=== PATIENT | male | born 1975 | race American Indian/Alaskan Native ===

== ENCOUNTER 2016-07-13 06:49 | Day surgery (SDC) | payer MEDICAID, OTHER ==
[~2016-07-13 06:49] MED LIST: Bupivacaine 0.5%/EPINEPHrine 1:200,000 50 ML MDV ONE
[2016-07-13] MEDS ORDERED: Lactated Ringers 1,000 ML IV SCH (07:30)
[2016-07-13] MEDS ORDERED: ceFAZolin 2 GM in Sodium Chloride 0.9% 50 ML IV ONE (07:30)
[2016-07-13] MEDS ORDERED: Bupivacaine 0.5% 50 ML MDV ONE (07:36)
[2016-07-13] MEDS ORDERED: Midazolam 1 MG/ML 2 ML SDV ONE (07:36)
[2016-07-13] MEDS ORDERED: fentaNYL 100 MCG/2 ML SDV ONE ×2 (07:37→09:59)
[2016-07-13] MEDS ORDERED: Ondansetron 4 MG/2 ML SDV ONE (08:15)
[2016-07-13] MEDS ORDERED: Neostigmine Methylsulfate 1 MG/ML 5 ML Syringe ONE (08:15)
[2016-07-13] MEDS ORDERED: Rocuronium 50 MG/5 ML Vial ONE (08:15)
[2016-07-13] MEDS ORDERED: fentaNYL 250 MCG/5 ML SDV ONE (08:15)
[2016-07-13] MEDS ORDERED: Propofol 200 MG/20 ML SDV ONE (08:15)
[2016-07-13] MEDS ORDERED: Dexamethasone 4 MG/ML SDV ONE (08:15)
[2016-07-13] MEDS ORDERED: Povidone-Iodine 10% Soln 118.25 ML Bottle ONE (10:29)
[2016-07-13] MEDS ORDERED: Succinylcholine/Normal Saline 200 MG/10 ML Syringe ONE (10:46)
[2016-07-13 13:42] VITALS: BP 115/69
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
== END 2016-07-13 14:20 | disposition home or self-care (01) ==
LOC: JP.SDS 06:49
PROVIDERS: ATTEND Orthopaedic Surgery
PROC: 0RSG04Z Reposition Right Acromioclavicular Joint with Internal Fixation Device, Open Approach (ICD-10-PCS; principal; 2016-07-13)
PROC: 0PB90ZZ Excision of Right Clavicle, Open Approach (ICD-10-PCS; 2016-07-13)
DX: S43.101A Unspecified dislocation of right acromioclavicular joint, initial encounter (principal); V86.92XA Unspecified occupant of snowmobile injured in nontraffic accident, initial encounter; F41.9 Anxiety disorder, unspecified; D64.9 Anemia, unspecified; Z79.899 Other long term (current) drug therapy
CPT/HCPCS: 23120; 23552; C1776; J0690; J1100; J2250; J2405; J2704; J3010; J7050; J7120

== ENCOUNTER 2016-09-05 10:55 | Emergency (ER) | payer MEDICAID, OTHER ==
[2016-09-05] MEDS ORDERED: Ketorolac 60 MG/2 ML SDV IM ONE (11:52)
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
[2016-09-05 12:20] VITALS: BP 138/90
== END 2016-09-05 12:31 | disposition home or self-care (01) ==
LOC: JP.ED 10:55
DX: M25.511 Pain in right shoulder (principal); F32.9 Major depressive disorder, single episode, unspecified; F41.9 Anxiety disorder, unspecified; F17.210 Nicotine dependence, cigarettes, uncomplicated; Z79.899 Other long term (current) drug therapy; Z98.890 Other specified postprocedural states
CPT/HCPCS: 96372; 99283; J1885

== ENCOUNTER 2017-02-12 16:07 | Emergency (ER) | payer MEDICAID ==
[2017-02-12 16:22] VITALS: BP 143/84
[2017-02-12] MEDS ORDERED: Ketorolac 60 MG/2 ML SDV IM ONE (16:40)
--- NOTE | 2017-02-12 16:40 | EDM.PDOC ---
ED HPI GENERAL MEDICAL PROBLEM - General Chief Complaint: ENT Problem Stated Complaint: TOOTHACHE Time Seen by Provider: 02/12/17 16:25 Source of Information: Reports: Patient, Family History Limitations: Reports: No Limitations - History of Present Illness INITIAL COMMENTS - FREE TEXT/NARRATIVE: Napoleon presents today with complaints of dental pain to right lower jaw. He reports pain starting as dull ache 2 days ago with steady progression to sharp stabbing pain today. He states he does grind his teeth at night. Napoleon has tried use of acetaminophen, ibuprofen, naproxen and orajel without relief. Right Lower Tooth/Teeth Pain Score (Numeric/FACES): 8 - Related Data Allergies Allergy/AdvReac Type Severity Reaction Status Date / Time No Known Allergies Allergy Verified 02/12/17 16:22 Home Meds: Home Meds NK [No Known Home Meds] 02/12/17 [History] Past Medical History - Past Health History Medical/Surgical History: Denies Medical/Surgical History HEENT History: Reports: None Respiratory History: Reports: Pneumothorax Gastrointestinal History: Reports: Cholelithiasis Genitourinary History: Reports: Renal Calculus Musculoskeletal History: Reports: Other (See Below) Other Musculoskeletal History: shoulder separation Psychiatric History: Reports: Anxiety, Depression, Suicide Attempt Hematologic History: Reports: Anemia - Infectious Disease History Infectious Disease History: Reports: C-Difficile - Past Surgical History GI Surgical History: Reports: Cholecystectomy Musculoskeletal Surgical History: Reports: Shoulder Surgery Social & Family History - Family History Musculoskeletal: Reports: Arthritis Endocrine/Metabolic: Reports: Diabetes, type II Immunologic: Reports: SLE - Tobacco Use Smoking Status *Q: Current Every Day Smoker Years of Tobacco use: 20 Packs/Tins Daily: 0.5 Used Tobacco, but Quit: No Second Hand Smoke Exposure: Yes - Caffeine Use Caffeine Use: Reports: Coffee - Alcohol Use Days Per Week of Alcohol Use: 2 Number of Drinks Per Day: 3 Total Drinks Per Week: 6 - Recreational Drug Use Recreational Drug Use: No Recreational Drug Type: Reports: Marijuana/Hashish Recreational Drug Use Frequency: Monthly - Living Situation & Occupation Living situation: Reports: with Significant Other ED ROS ENT - Review of Systems Review Of Systems: See Below Constitutional: Denies: Fever, Chills, Night Sweats HEENT: Reports: Dental Pain. Denies: Ear Discharge, Ear Pain, Sinus Problem, Throat Pain, Throat Swelling, Vision Change Respiratory: Denies: Shortness of Breath, Wheezing, Cough, Sputum Cardiovascular: Reports: No Symptoms GI/Abdominal: Reports: No Symptoms Musculoskeletal: Denies: Neck Pain Skin: Denies: Bruising, Rash, Erythema, Wound Neurological: Reports: No Symptoms Psychiatric: Reports: No Symptoms Hematologic/Lymphatic: Reports: No Symptoms Immunologic: Reports: No Symptoms ED EXAM, ENT - Physical Exam Exam: See Below Text/Narrative:: Napoleon is an alert, oriented and pleasant 41 year old male presenting with dental pain for less then 72 hours. He has tried use of OTC medications and topicals to help his pain. He also suffers from bruxism. [place] noted to #28, pain to #27,28,29 at gum line. No erythema, edema or exudates of oral cavity. [place] HE[facility] INFORMATION CLERK checked, appropriate with no recent fills of narcotic medications. Exam Limited By: No Limitations General Appearance: Alert, WD/WN, Moderate Distress Eye Exam: Bilateral Eye: EOMI, PERRL Ears: Normal External Exam, Normal Canal, Hearing Grossly Normal, Normal TMs Nose: Normal Inspection, Normal Mucousa, No Blood Mouth/Throat: Normal Inspection, Normal Gums, Normal Lips, Normal Oropharynx, Dental Pain, Dental Tenderness, Other (tenderness noted to #27,28,29). No: Dental Abcess, Dental Trauma, Gum Swelling, Oral Ulcers Head: Atraumatic, Normocephalic Neck: Normal Inspection, Supple, Non-Tender, Full Range of Motion. No: Lymphadenopathy (R), Lymphadenopathy (L) Respiratory/Chest: No Respiratory Distress, Lungs Clear, Normal Breath Sounds, No Accessory Muscle Use, Chest Non-Tender Cardiovascular: Normal Peripheral Pulses, Regular Rate, Rhythm, No Edema, No Murmur, No Rub Neurological: Alert, Oriented, CN II-XII Intact, Normal Cognition, Normal Gait, No Motor/Sensory Deficits Psychiatric: Normal Affect, Normal Mood Skin: Warm, Dry, Intact, Normal Color, No Rash Lymphatic: No Adenopathy Course - Vital Signs Last Recorded V/S: Last Vital Signs Temp 36.5 C 02/12/17 16:17 Pulse 75 02/12/17 16:17 Resp 18 02/12/17 16:17 BP 143/84 H 02/12/17 16:17 Pulse Ox 97 02/12/17 16:17 - Orders/Labs/Meds Meds: Medications Discontinued Medications Generic Name Dose Route Start Last Admin Trade Name Lorenzo PRN Reason Stop Dose Admin Ketorolac Tromethamine 60 mg 02/12/17 16:40 02/12/17 16:51 Toradol IM 02/12/17 16:41 60 mg ONETIME ONE Administration - Re-Assessments/Exams Free Text/Narrative Re-Assessment/Exam: 02/12/17 16:55 Exam findings reviewed with patient. No evidence of infection noted with significant tenderness to tooth with crown. He will be provided Toradol IM and instymed for hydrocodone #6 tablets for pain. Referral to dental clinic. Departure - Departure Time of Disposition: 16:39 Disposition: Home, Self-Care 01 Condition: Good Clinical Impression: Pain, dental, Bruxism (teeth grinding) - Discharge Information Instructions: Dental Care and Dentist Visits Referrals: PCP,None [Primary Care Provider] - Forms: ED Department Discharge Additional Instructions: You are suffering from dental pain. You were given toradol 60mg injection for pain in the emergency room. You can take ibuprofen 800mg by mouth three times a day as needed for pain ( first dose 6 hours after injection). Acetaminophen can also help for the pain as needed. Hydrocodone 5/325mg, one to two tablets as directed #6 provided. A dental referral was placed for you at [facility]. Report as directed tomorrow 02/13/17 at 8:15am. [place] [facility] INFORMATION CLERK checked and appropriate. - Assessment/Plan Assessment:: Dental pain Bruxism Plan: Patient given toradol 60mg injection for pain in the emergency room. He can take ibuprofen 800mg by mouth three times a day as needed for pain ( first dose 6 hours after injection). Acetaminophen can also help for the pain as needed. Hydrocodone 5/325mg, one to two tablets as directed #6 provided. A dental referral was placed for patient at [facility]. Report as directed tomorrow 02/13/17 at 8:15am. [place] [facility] INFORMATION CLERK checked and appropriate.
== END 2017-02-12 17:03 | disposition home or self-care (01) ==
LOC: JP.ED 16:07
DX: G47.63 Sleep related bruxism (principal); K08.89 Other specified disorders of teeth and supporting structures; F17.210 Nicotine dependence, cigarettes, uncomplicated
CPT/HCPCS: 96372; 99283; J1885

== ENCOUNTER 2017-04-03 11:03 | Emergency (ER) | payer MEDICAID ==
[2017-04-03 11:25] VITALS: BP 134/86
[2017-04-03] MEDS ORDERED: Ketorolac 60 MG/2 ML SDV IM ONE (12:03)
--- NOTE | 2017-04-03 12:07 | EDM.PDOC ---
ED HPI GENERAL MEDICAL PROBLEM - General Chief Complaint: Back Pain or Injury Stated Complaint: BACK PAIN Time Seen by Provider: 04/03/17 12:00 Source of Information: Reports: Patient, RN Notes Reviewed History Limitations: Reports: No Limitations - History of Present Illness INITIAL COMMENTS - FREE TEXT/NARRATIVE: 41-year-old gentleman presents emergency department day complaint of low back pain he thinks he injured himself yesterday with a twisting injury he has had problems with his back in the past he tried Flexeril last night with minimal relief no loss of bowel or bladder no fevers lower;back Pain Score (Numeric/FACES): 8 - Related Data Allergies Allergy/AdvReac Type Severity Reaction Status Date / Time No Known Allergies Allergy Verified 04/03/17 11:33 Home Meds: Home Meds Cyclobenzaprine [Flexeril] 10 mg PO BEDTIME PRN 04/03/17 [History] Past Medical History Respiratory History: Reports: Pneumothorax Gastrointestinal History: Reports: Cholelithiasis Genitourinary History: Reports: Renal Calculus Musculoskeletal History: Reports: Other (See Below) Other Musculoskeletal History: shoulder separation Psychiatric History: Reports: Anxiety, Depression, Suicide Attempt Hematologic History: Reports: Anemia - Infectious Disease History Infectious Disease History: Reports: C-Difficile - Past Surgical History GI Surgical History: Reports: Cholecystectomy Musculoskeletal Surgical History: Reports: Shoulder Surgery Social & Family History - Family History Musculoskeletal: Reports: Arthritis Endocrine/Metabolic: Reports: Diabetes, type II Immunologic: Reports: SLE - Tobacco Use Smoking Status *Q: Current Every Day Smoker Years of Tobacco use: 20 Packs/Tins Daily: 0.5 Used Tobacco, but Quit: No Second Hand Smoke Exposure: Yes - Caffeine Use Caffeine Use: Reports: Coffee - Alcohol Use Days Per Week of Alcohol Use: 2 Number of Drinks Per Day: 3 Total Drinks Per Week: 6 - Recreational Drug Use Recreational Drug Use: No Recreational Drug Type: Reports: Marijuana/Hashish Recreational Drug Use Frequency: Monthly - Living Situation & Occupation Living situation: Reports: with Significant Other ED ROS GENERAL - Review of Systems Review Of Systems: See Below Constitutional: Denies: Fever, Chills Musculoskeletal: Reports: Back Pain Skin: Reports: No Symptoms Neurological: Reports: No Symptoms ED EXAM,LOWER BACK PAIN/INJURY - Physical Exam Exam: See Below Exam Limited By: No Limitations General Appearance: Alert, WD/WN, No Apparent Distress Respiratory/Chest: No Respiratory Distress Back Exam: Normal Inspection, Decreased Range of Motion, Muscle Spasm, Paraspinal Tenderness. No: CVA Tenderness (R), CVA Tenderness (L), Vertebral Tenderness DTR - Lower Extremities: 2+: Knee (R), Knee (L) Course - Vital Signs Last Recorded V/S: Last Vital Signs Temp 97.2 F 04/03/17 11:32 Pulse 75 04/03/17 11:32 Resp 18 04/03/17 11:32 BP 134/86 04/03/17 11:32 Pulse Ox 98 04/03/17 11:32 - Orders/Labs/Meds Meds: Medications Discontinued Medications Generic Name Dose Route Start Last Admin Trade Name Nayanq PRN Reason Stop Dose Admin Carisoprodol 350 mg 04/03/17 12:03 04/03/17 12:22 Soma PO 04/03/17 12:04 350 mg ONETIME ONE Administration Ketorolac Tromethamine 60 mg 04/03/17 12:03 04/03/17 12:19 Toradol IM 04/03/17 12:04 60 mg ONETIME ONE Administration Departure - Departure Time of Disposition: 13:21 Disposition: Home, Self-Care 01 Condition: Good Clinical Impression: Back pain Qualifiers: Back pain location: low back pain Chronicity: acute Back pain laterality: right Sciatica presence: without sciatica Qualified Code(s): M54.5 - Low back pain - Discharge Information Referrals: PCP,None [Primary Care Provider] - Forms: ED Department Discharge Additional Instructions: Use ibuprofen for baseline pain control, use hydrocodone for breakthrough pain, use Flexeril as needed for muscle relaxant Please followup with your primary care provider in 3-5 days if not better, please call return to the emergency department with worsening of symptoms. - Assessment/Plan Plan: Assessment Acuity = acute Site and laterality = low back pain Etiology = secondary lifting injury Manifestations = none Location of injury = Home Lab values = none Plan Some relief with combination Toradol and Soma plan is discharge home with Flexeril 10 mg by mouth 3 times a day when necessary and hydrocodone 5/325 one tab by mouth 3 times a day when necessary him follow-up with his primary care in 3-5 days if no improvement Patient was in agreement with the plan all questions were answered, they were instructed to return to the emergency department or call for worsening symptoms. This note was dictated using [email or web address] voice recognition software please call with any questions.
== END 2017-04-03 13:27 | disposition home or self-care (01) ==
LOC: JP.ED 11:03
DX: M54.5 Low back pain (principal); F17.210 Nicotine dependence, cigarettes, uncomplicated; X50.1XXA Overexertion from prolonged static or awkward postures, initial encounter
CPT/HCPCS: 96372; 99283; A9270; J1885

== ENCOUNTER 2017-08-28 18:45 | Emergency (ER) | payer SELFPAY ==
[2017-08-28 19:00] VITALS: BP 145/80
[2017-08-28] MEDS ORDERED: Ketorolac 60 MG/2 ML SDV IM ONE (19:39)
[2017-08-28] MEDS ORDERED: Cyclobenzaprine 10 MG Tab PO ONE (19:39)
--- NOTE | 2017-08-28 19:46 | EDM.PDOC ---
ED HPI GENERAL MEDICAL PROBLEM - General Chief Complaint: Back Pain or Injury Stated Complaint: HURT BACK ON 27 Time Seen by Provider: 08/28/17 19:35 Source of Information: Reports: Patient, Family, Old Records, RN Notes Reviewed History Limitations: Reports: No Limitations - History of Present Illness INITIAL COMMENTS - FREE TEXT/NARRATIVE: 42-year-old gentleman presents to the emergency department day complaint of low back pain predominately on the right side, he injured himself at work improperly lifting and twisting, he has no loss of bowel or bladder he has tried ibuprofen and methocarbamol with minimal relief no fevers Right Lower Back Pain Score (Numeric/FACES): 8 - Related Data Allergies Allergy/AdvReac Type Severity Reaction Status Date / Time No Known Allergies Allergy Verified 04/03/17 11:33 Home Meds: Home Meds Cyclobenzaprine [Flexeril] 10 mg PO BEDTIME PRN 04/03/17 [History] Past Medical History Respiratory History: Reports: Pneumothorax Gastrointestinal History: Reports: Cholelithiasis Genitourinary History: Reports: Renal Calculus Musculoskeletal History: Reports: Other (See Below) Other Musculoskeletal History: shoulder separation Psychiatric History: Reports: Anxiety, Depression, Suicide Attempt Hematologic History: Reports: Anemia - Infectious Disease History Infectious Disease History: Reports: Chicken Pox - Past Surgical History GI Surgical History: Reports: Cholecystectomy Musculoskeletal Surgical History: Reports: Shoulder Surgery Social & Family History - Family History Musculoskeletal: Reports: Arthritis Endocrine/Metabolic: Reports: Diabetes, type II Immunologic: Reports: SLE - Tobacco Use Smoking Status *Q: Never Smoker Years of Tobacco use: 20 Packs/Tins Daily: 0.5 Used Tobacco, but Quit: No Second Hand Smoke Exposure: Yes - Caffeine Use Caffeine Use: Reports: Coffee - Alcohol Use Days Per Week of Alcohol Use: 2 Number of Drinks Per Day: 3 Total Drinks Per Week: 6 - Recreational Drug Use Recreational Drug Use: No Recreational Drug Type: Reports: Marijuana/Hashish Recreational Drug Use Frequency: Monthly - Living Situation & Occupation Living situation: Reports: with Significant Other ED ROS GENERAL - Review of Systems Review Of Systems: See Below Constitutional: Reports: No Symptoms HEENT: Reports: No Symptoms Respiratory: Reports: No Symptoms Cardiovascular: Reports: No Symptoms GI/Abdominal: Reports: No Symptoms : Reports: No Symptoms Musculoskeletal: Reports: Back Pain ED EXAM,LOWER BACK PAIN/INJURY - Physical Exam Exam: See Below Text/Narrative:: Examination of the low back I don't appreciate any erythema or edema over the back injury he is tender to palpation lumbar region cross leg test and straight leg test are both negative he has difficulty ambulating failure versus his left side Exam Limited By: No Limitations General Appearance: Alert, WD/WN, No Apparent Distress Respiratory/Chest: No Respiratory Distress Course - Vital Signs Last Recorded V/S: Last Vital Signs Temp 98.2 F 08/28/17 18:58 Pulse 73 08/28/17 18:58 Resp 16 08/28/17 18:58 BP 145/80 H 08/28/17 18:58 Pulse Ox 97 08/28/17 18:58 - Orders/Labs/Meds Meds: Medications Discontinued Medications Generic Name Dose Route Start Last Admin Trade Name Frepeter PRN Reason Stop Dose Admin Cyclobenzaprine HCl 10 mg 08/28/17 19:39 08/28/17 20:04 Flexeril PO 08/28/17 19:40 10 mg ONETIME ONE Administration Ketorolac Tromethamine 60 mg 08/28/17 19:39 08/28/17 20:04 Toradol IM 08/28/17 19:40 60 mg ONETIME ONE Administration Departure - Departure Time of Disposition: 20:47 Disposition: Home, Self-Care 01 Condition: Good Clinical Impression: Back pain Qualifiers: Back pain location: low back pain Chronicity: acute Back pain laterality: right Sciatica presence: without sciatica Qualified Code(s): M54.5 - Low back pain - Discharge Information Referrals: PCP,None [Primary Care Provider] - Forms: ED Department Discharge, ED Return to Work/School Form Additional Instructions: Continue to use ibuprofen for baseline pain control, use hydrocodone for breakthrough pain, use Flexeril as needed for muscle relaxant, please follow-up with your primary care provider for further evaluation recommend physical therapy - Assessment/Plan Plan: Assessment Acuity = acute Site and laterality = low back pain Etiology = secondary to lifting injury Manifestations = none Location of injury = work Lab values = none Plan He had good improvement with combination Toradol Flexeril discharged home with Flexeril 10 mg by mouth 3 times a day when necessary total #15 also given hydrocodone 5/325 one tablet by mouth every 4-6 hours when necessary to #6 he is to follow-up with his primary care provider for further evaluation tomorrow This note was dictated using [employer] voice recognition software please call with any questions on syntax or penelope.
== END 2017-08-28 20:57 | disposition home or self-care (01) ==
LOC: JP.ED 18:45
DX: M54.5 Low back pain (principal); X50.0XXA Overexertion from strenuous movement or load, initial encounter
CPT/HCPCS: 96372; 99283; A9270; J1885

== ENCOUNTER 2023-03-23 15:06 | Emergency (ER) | payer MEDICAID ==
[2023-03-23 15:37] VITALS: BP 144/87; PULSE 80
[2023-03-23 17:04] LABS: BASOPHILS PERCENT AUTO 0.3 % (0.1-1.3); EOSINOPHILS ABSOLUTE AUTO 0.19 K/uL (0.00-0.40); EOSINOPHILS PERCENT AUTO 5.5 % (0.0-5.4); HEMATOCRIT 44.5 % (38.4-49.7); HEMOGLOBIN 14.7 g/dL (12.9-16.9); IMMATURE GRAN PERCENT AUTO 0.3 % (0.0-0.7); LYMPHOCYTES ABSOLUTE AUTO 1.42 K/uL (0.8-3.3); LYMPHOCYTES PERCENT AUTO 41.2 % (11.4-47.7); MEAN CORPUSCULAR HEMOGLOBIN 30.1 pg (31.6-35.5); MEAN CORPUSCULAR VOLUME 91.2 fL (81.4-99.0); MONOCYTES ABSOLUTE AUTO 0.51 K/uL (0.20-0.90); MONOCYTES PERCENT AUTO 14.8 % (3.3-12.6); NEUTROPHILS ABSOLUTE AUTO 1.31 K/uL (1.0-7.6); NEUTROPHILS PERCENT AUTO 37.9 % (40.0-78.1); PLATELET COUNT,PLT 217 K/uL (130-375); RED BLOOD CELL COUNT 4.88 M/uL (4.14-5.76); WHITE BLOOD CELL COUNT,WBC 3.5 K/uL (3.2-11.0)
[2023-03-23 17:05] LABS: BASE EXCESS VENOUS 0.7 mm/L; BASOPHILS ABSOLUTE AUTO 0.01 K/uL (0.00-0.10); BICARBONATE,VENOUS 25.5 mmol/L; CARBOXYHEMOGLOBIN 3.3 % (0.0-1.6); IMMATURE GRAN ABSOLUTE AUTO 0.01 K/uL (0.00-0.23); METHEMOGLOBIN 0.9 %; O2 SATURATION VENOUS 47.2; OXYHEMOGLOBIN 45.2 %; PCO2 VENOUS 43.8 mm/Hg; PH,VENOUS 7.384 (7.350-7.450); TOTAL HEMOGLOBIN 15.5 g/dL (13.5-18.0)
[2023-03-23 17:06] LABS: PO2 VENOUS 28.4 mm/Hg
[2023-03-23 17:24] LABS: A/G RATIO 1.1 (1.2-2.2); ALANINE AMINOTRANSFERASE,ALT 18 U/L (12-78); ALBUMIN 3.3 g/dL (3.4-5.0); ALKALINE PHOSPHATASE 98 U/L (46-116); ANION GAP 10.8 mmol/L (5.0-14.0); ASPARTATE AMNIOTRANSFERASE,AST 17 U/L (15-37); BILIRUBIN TOTAL 0.2 mg/dL (0.2-1.0); BLOOD UREA NITROGEN,BUN 11 mg/dL (7-18); CARBON DIOXIDE,CO2 29 mmol/L (21-32); CHLORIDE,CL 109 mmol/L (100-108); CREATININE 1.1 mg/dL (0.8-1.3); EST CRCL DRUG DOSING (CG) 92.81 mL/min; ESTIMATED GFR 83 mL/min (>60); GLUCOSE RANDOM 108 mg/dL (74-106); POTASSIUM,K 3.8 mmol/L (3.6-5.2); PROTEIN TOTAL,TP 6.4 g/dL (6.4-8.2); SODIUM,NA 145 mmol/L (140-148)
== END 2023-03-23 19:10 | disposition home or self-care (01) ==
LOC: JP.ED 15:06
DX: R05.3 Chronic cough (principal); J01.00 Acute maxillary sinusitis, unspecified; R07.9 Chest pain, unspecified; Z86.16 Personal history of COVID-19; F17.210 Nicotine dependence, cigarettes, uncomplicated
CPT/HCPCS: 36415; 70486; 71250; 80053; 80307; 82803; 83605; 84145; 85025; 85379; 99285